=== PATIENT | female | born 1940 | race Two or more races ===

== ENCOUNTER → 2017-07-25 | Emergency (ER) | payer OTHER ==
[~2017-07-25] VITALS: Ht 172.7 cm; Wt 78.0 kg
[~2017-07-25] MED LIST: DIAZEPAM10 MG PO; DOPAMINE; VISTARIL50 MG PO
== END | disposition home or self-care (01) ==
LOC: ER 12:22
DX: M54.31 Sciatica, right side (principal); G58.8 Other specified mononeuropathies

== ENCOUNTER 2017-08-21 11:59 | Emergency (ER) | payer OTHER ==
[~2017-08-21] VITALS: Ht 172.7 cm; Wt 78.0 kg
[2017-08-21] MEDS ORDERED: TRAMADOL HCL50 MG (12:12)
[2017-08-21] MEDS ORDERED: CARBIDOPA25 MG (12:12)
== END 2017-08-21 20:24 | disposition home or self-care (01) ==
LOC: ER 11:59 → CPU-OBS 12:16 → ER 12:16
DX: R07.89 Other chest pain (principal); I87.2 Venous insufficiency (chronic) (peripheral)

== ENCOUNTER 2019-02-28 00:12 | Inpatient (IN) | payer OTHER ==
[~2019-02-28] VITALS: Ht 175.3 cm; Wt 76.7 kg
[~2019-02-28 00:12] MED LIST changes: +CARBIDOPA25 MG; +TRAMADOL HCL50 MG
--- NOTE | 2019-02-28 00:21 | NUR ---
SE RECIBE PTE ALERTA Y ORIENTADA POR ILEANA EN AMBULANCIA. PTE LLEGA CANALIZADA EN MANO DERECHA CON ANGIO #20 Y 0.9 NSS DE 250ML. PTE CON CANALIZACION PATENTE AL MOMENTO DE CHATTERJEE LLEGADA. PTE REFIERE PRESENTAR TOS Y DIFICULTAD RESPIRATORIA DESDE HACE 5 CORRALES Y FIEBRE PTE ES PRESENTADA A DR. TANNER POR PERSONAL PARAMEDICO.
--- NOTE | 2019-02-28 00:55 | NUR ---
MS S ROSIBEL ORIENTA A PACIENTE SOBRE ORDENES MEDICAS, COLECTA MUESTRAS DE LABORATORIO Y ADMINISTRA MEDICAMENTOS. ABG Y TERAPIAS RESPIRATORIAS NOTIFICADAS A MS SHERIDAN.
--- NOTE | 2019-02-28 07:57 | NUR ---
SE RECIBE PTE FEMENINA DE 78 YRS ALERTA CONCIENTE Y TRANQUILA EN COMOPANIA DE FAMILIAR. PTE EN CAMAM CON BARANDAS ELEVDA. SE MANTIENE CON IVF PANTENTE Y STEPHANY DE EDEMA. SE MANTIENE EN ESPERA DE MEDICO CONSULTOR. SE OBSERVA POR CAMBIOS.
[2019-03-05] MEDS ORDERED: LORATADINE10 MG PO (14:38)
[2019-03-05] MEDS ORDERED: MEDROLPACK PO ×2 (14:39→14:57)
[2019-03-05] MEDS ORDERED: BENZONATATE100 MG PO (14:39)
[2019-03-05] MEDS ORDERED: IPRATROPIU0.2 MG/1 M IH (14:39)
[2019-03-05] MEDS ORDERED: ALBUTEROL2.5 MG/3 M IH (14:39)
[2019-03-05] MEDS ORDERED: GUAIFENESIN AC C5 ML PO (14:40)
[2019-03-05] MEDS ORDERED: IPRAT-ALBUT 0.5-3 ML IH (14:57)
[2019-03-05] MEDS ORDERED: BENZONATATE200 M1 PO (14:57)
[2019-03-05] MEDS ORDERED: LORATADINE10 M2 PO (14:57)
[2019-03-05] MEDS ORDERED: BUDESONIDE0.5 MG/2 M IH (14:57)
[2019-03-05] MEDS ORDERED: TUSSIN100 MG/5 M PO (14:57)
== END 2019-03-05 17:29 | disposition home or self-care (01) | DRG 194 ==
LOC: ER 00:12 → MEDJ 09:32
PROVIDERS: ADMIT Internal Medicine
PROC: 4A033R1 Measurement of Arterial Saturation, Peripheral, Percutaneous Approach (ICD-10-PCS; principal; 2019-02-28)
PROC: 3E0F7GC Introduction of Other Therapeutic Substance into Respiratory Tract, Via Natural or Artificial Opening (ICD-10-PCS; 2019-02-28)
PROC: 8E0ZXY6 Isolation (ICD-10-PCS; 2019-02-28)
DX: J10.1 Influenza due to other identified influenza virus with other respiratory manifestations (principal); J44.1 Chronic obstructive pulmonary disease with (acute) exacerbation; J45.41 Moderate persistent asthma with (acute) exacerbation; J98.11 Atelectasis; R09.02 Hypoxemia; F17.298 Nicotine dependence, other tobacco product, with other nicotine-induced disorders

== ENCOUNTER 2019-03-22 12:05 | Emergency (ER) | payer OTHER ==
[~2019-03-22] VITALS: Ht 175.3 cm; Wt 76.2 kg
[~2019-03-22 12:05] MED LIST changes: +ALBUTEROL2.5 MG/3 M IH; +BENZONATATE100 MG PO; +BENZONATATE200 M1 PO; +BUDESONIDE0.5 MG/2 M IH; +GUAIFENESIN AC C5 ML PO; +IPRAT-ALBUT 0.5-3 ML IH; +IPRATROPIU0.2 MG/1 M IH; +LORATADINE10 M2 PO; +LORATADINE10 MG PO; +MEDROLPACK PO; +TUSSIN100 MG/5 M PO
== END 2019-03-22 14:23 | disposition home or self-care (01) ==
LOC: ER 12:05
DX: B34.9 Viral infection, unspecified (principal)

== ENCOUNTER → 2019-04-02 | Emergency (ER) | payer OTHER ==
[~2019-04-02] VITALS: Ht 175.3 cm; Wt 74.8 kg
== END | disposition left against medical advice (07) ==
LOC: ER 16:52
DX: Z53.20 Procedure and treatment not carried out because of patient's decision for unspecified reasons (principal)

== ENCOUNTER 2021-07-25 10:22 | Outpatient (CLI) | payer OTHER | END 2021-07-25 10:30 | disposition home or self-care (01) | LOC: RAD 10:22 | PROVIDERS: ATTEND Physical Medicine & Rehabilitation | DX: M54.50 Low back pain, unspecified (principal); M16.11 Unilateral primary osteoarthritis, right hip ==

== ENCOUNTER 2021-09-08 10:24 | Outpatient (CLI) | payer OTHER | END 2021-09-08 10:35 | disposition home or self-care (01) | LOC: SONOGRAMA 10:24 | PROVIDERS: ATTEND Physical Medicine & Rehabilitation | DX: K40.00 Bilateral inguinal hernia, with obstruction, without gangrene, not specified as recurrent (principal) ==

== ENCOUNTER 2021-09-21 12:01 | Emergency (ER) | payer OTHER ==
[~2021-09-21] VITALS: Ht 172.7 cm; Wt 77.1 kg
== END 2021-09-21 16:58 | disposition home or self-care (01) ==
LOC: ER 12:01
DX: R53.1 Weakness (principal); R06.02 Shortness of breath; R50.9 Fever, unspecified; R51.9 Headache, unspecified; I51.7 Cardiomegaly